=== PATIENT | male | born 1970 | race American Indian/Alaskan Native ===

== ENCOUNTER 2017-11-21 08:36 | Emergency (ER) | payer BC ==
[2017-11-21 08:41] VITALS: RESP 18
[2017-11-21 08:44] VITALS: BMI 29.0
[2017-11-21] MEDS ORDERED: Sodium Chloride 0.9% 1,000 ML IV ONE (09:05)
[2017-11-21] MEDS ORDERED: Sodium Chloride 0.9% 1,000 ML ONE (09:08)
--- NOTE | 2017-11-21 09:09 | C.PDOC ---
History Of Present Illness 47year old male presents to ED with complaints of upper abdominal pain since midnight. He reports eating at [employer] yesterday evening around 1830 and 6 hours later began having pain to upper abdomen, he describes cramps, pressure and sharp pain. He also reports vomiting and watery diarrhea starting 5 hours ago. He took Zantac without relief. Has history of GERD. Time Seen by Provider: 11/21/17 08:49 Chief Complaint (Nursing): Abdominal Pain History Per: Patient History/Exam Limitations: no limitations Onset/Duration Of Symptoms: Hrs Current Symptoms Are (Timing): Still Present Location Of Pain/Discomfort: Epigastric Radiation Of Pain To:: None Quality Of Discomfort: "Pain" Associated Symptoms: Vomiting, Diarrhea. denies: Fever Alleviating Factors: None Past Medical History Reviewed: Historical Data, Nursing Documentation, Vital Signs Vital Signs: Last Vital Signs Temp 99.0 F 11/21/17 11:06 Pulse 98 H 11/21/17 11:06 Resp 18 11/21/17 11:06 BP 115/64 11/21/17 10:15 Pulse Ox 96 11/21/17 11:17 - Medical History PMH: Asthma, HIV Surgical History: No Surg Hx Family History: States: No Known Family Hx - Social History Hx Tobacco Use: No Hx Alcohol Use: Yes Hx Substance Use: No - Immunization History Hx Tetanus Toxoid Vaccination: No Hx Influenza Vaccination: No Hx Pneumococcal Vaccination: No Review Of Systems Except As Marked, All Systems Reviewed And Found Negative. Constitutional: Negative for: Fever Eyes: Negative for: Vision Change, Redness Cardiovascular: Negative for: Chest Pain, Palpitations Respiratory: Negative for: Shortness of Breath Gastrointestinal: Positive for: Nausea, Vomiting, Abdominal Pain, Diarrhea Skin: Negative for: Rash Neurological: Negative for: Headache, Dizziness Physical Exam - Physical Exam Appears: Non-toxic, No Acute Distress Skin: Warm, Dry, No Rash Head: Atraumatic, Normacephalic Eye(s): bilateral: Normal Inspection, PERRL, EOMI Nose: Normal Oral Mucosa: Moist Lips: Normal Appearing Neck: Normal ROM Cardiovascular: Rhythm Regular, No Murmur Respiratory: Normal Breath Sounds, No Accessory Muscle Use Gastrointestinal/Abdominal: Soft, Tenderness (epigastric tenderness and LUQ), No Mass, No Distention, No Guarding, No Rebound Back: Normal Inspection, No CVA Tenderness, No Vertebral Tenderness, No Paraspinal Tenderness Extremity: Normal ROM Neurological/Psych: Oriented x3, Normal Speech Gait: Steady ED Course And Treatment - Laboratory Results Result Diagrams: 11/21/17 09:11 11/21/17 09:11 Lab Interpretation: No Acute Changes O2 Sat by Pulse Oximetry: 96 (on RA) Pulse Ox Interpretation: Normal Medical Decision Making Medical Decision Making: Impression: abdominal pain, vomiting and diarrhea Plan: * CBC * CMP * UA * IV NS, Zofran, Toradol Progress: Labs reviewed and unremarkable. On my re-evaluation, patient reports feeling better, abdominal pain has mostly resolved. His abdomen is soft without guarding or rebound. He has no fever and vital signs stable. Patient is to be discharged and recommend CLD with progression as tolerated and to drink fluids to stay hydrated. As per RN, upon discharge patient asking for Tylenol for headache before he goes. Disposition Counseled Patient/Family Regarding: Need For Followup, Rx Given - Disposition Referrals: Julien De Jesus MD [Staff Provider] - Disposition: HOME/ ROUTINE Disposition Time: 10:44 Condition: IMPROVED Additional Instructions: Drink fluids to prevent dehydration. Take Zofran as prescribed. Try low-fat diet with increase in fluids such as sport drink, gelatin. Try soup, rice, bread , crackers, cereal, bananas to help with diarrhea. Avoid high sugar foods or drinks (soda and juice), fatty foods Prescriptions: Ondansetron ODT [Zofran ODT] 1 odt PO BID PRN #6 odt PRN Reason: Nausea/Vomiting Saccharomyces Boulardi [Florastor] 250 mg PO BID #20 cap Instructions: Gastroenteritis (DC) Forms: [facility] (Bel[place]ian), Work Excuse - POA Present On Arrival: None - Clinical Impression Clinical Impression: Gastroenteritis - Scribe Statement The provider has reviewed the documentation as recorded by the Scribe (Bella Escudero) All medical record entries made by the Scribe were at my direction and personally dictated by me. I have reviewed the chart and agree that the record accurately reflects my personal performance of the history, physical exam, medical decision making, and the department course for this patient. I have also personally directed, reviewed, and agree with the discharge instructions and disposition.
[2017-11-21 09:14] LABS: BASO % 0.4 % (0.0-2.0); EOS % 0.4 % (0.0-4.0); LYMPH # 0.7 K/uL (1.0-4.3); LYMPH % 8.8 % (20.0-40.0); MEAN CELL VOLUME 79.9 fL (80.0-94.0); MEAN CORPUSCULAR HEMOGLOBIN 28.1 pg (27.0-31.0); MEAN CORPUSCULAR HGB CONC 35.1 g/dL (33.0-37.0); MEAN PLATELET VOLUME 9.2 fL (7.2-11.7); MONO # 0.4 K/uL (0.0-0.8); MONO % 5.1 % (0.0-10.0); NEUT # 6.5 K/uL (1.8-7.0); NEUT % 85.3 % (50.0-75.0); NRBC % 0.3 % (0.0-2.0); PLATELET COUNT 195 K/uL (130-400); RBC 5.35 Mil/uL (4.40-5.90); RED CELL DISTRIBUTION WIDTH 13.9 % (11.5-14.5); WHITE BLOOD COUNT 7.7 K/uL (4.8-10.8)
[2017-11-21 09:26] LABS: ALBUMIN 4.5 g/dL (3.5-5.0); ALT/SGPT 38 U/L (21-72); AST/SGOT 37 U/L (17-59); BLOOD UREA NITROGEN 15 mg/dL (9-20); CALCIUM 8.9 mg/dl (8.6-10.4); GFR AFRICAN-AMERICAN > 60; GFR NON-AFRICAN AMERICAN > 60; LIPASE 89 U/L (23-300)
[2017-11-21 09:38] LABS: ALB/GLOB RATIO 1.1 (1.0-2.1)
[2017-11-21 09:44] LABS: EOSINOPHIL 1 % (0-4); LYMPHOCYTE 10 % (20-40); MONOCYTE 2 % (0-10); NEUTROPHIL 87 % (50-75); PLATELET ESTIMATE NORMAL (NORMAL); TOTAL CELLS COUNTED 100
[2017-11-21 09:45] LABS: LARGE PLATELETS PRESENT
[2017-11-21 10:16] VITALS: BP 115/64
[2017-11-21 10:23] LABS: URINE BILIRUBIN NEGATIVE (NEGATIVE); URINE BLOOD NEGATIVE (NEGATIVE); URINE CLARITY Clear (Clear); URINE COLOR Yellow (YELLOW); URINE GLUCOSE (UA) NORMAL (Normal); URINE LEUKOCYTE ESTERASE NEG Leu/uL (Negative); URINE NITRATE NEGATIVE (NEGATIVE); URINE PROTEIN NEGATIVE (NEGATIVE); URINE UROBILINOGEN NORMAL mg/dL (0.2-1.0)
[2017-11-21 11:09] VITALS: PULSE 98; TEMP 99
[2017-11-21 11:17] VITALS: O2SAT 96
== END 2017-11-21 11:21 | disposition home or self-care (01) ==
LOC: C.ER 08:36
DX: K52.9 Noninfective gastroenteritis and colitis, unspecified (principal)
CPT/HCPCS: 80053; 81001; 83690; 85025; 96361; 96374; 96375; 99285; J1885; J2405; J7040

== ENCOUNTER 2018-01-04 06:51 | Day surgery (SDC) | payer BC ==
[2018-01-04] MEDS ORDERED: Lactated Ringer's 1,000 ML IV ONE ×2 (07:45)
[2018-01-04] MEDS ORDERED: Propofol 10 mg/ml Inj (20 ML) ONE ×2 (08:03→08:08)
[2018-01-04 08:52] VITALS: TEMP 97.9
[2018-01-04 09:38] VITALS: BP 116/77; PULSE 76; RESP 12; O2SAT 97
== END 2018-01-04 09:37 | disposition home or self-care (01) ==
LOC: C.ENDO 06:51
PROVIDERS: ATTEND Internal Medicine Gastroenterology
DX: A63.0 Anogenital (venereal) warts (principal); R10.13 Epigastric pain; K29.70 Gastritis, unspecified, without bleeding; K44.9 Diaphragmatic hernia without obstruction or gangrene; K21.0 Gastro-esophageal reflux disease with esophagitis; K64.1 Second degree hemorrhoids
CPT/HCPCS: 43239; 45380; 88305; 88312; 88313; 88342; J2001; J2704; J3010; J7120